=== PATIENT | female | born 1950 | race Caucasian/White ===

== ENCOUNTER → 2018-07-13 | Outpatient (CLI) | payer OTHER | LOC: BHFA 09:00 | PROVIDERS: ATTEND Internal Medicine Cardiovascular Disease | DX: I47.2 Ventricular tachycardia (principal) | CPT/HCPCS: 78452; 93017; A9500 ==

== ENCOUNTER 2018-07-14 10:56 | Emergency (ER) | payer OTHER ==
--- NOTE | 2018-07-14 12:16 | EDPHY ---
H & P Time Seen by Provider: 07/14/18 12:15 HPI/ROS: Chief complaint. Chest pain HPI. 68-year-old female with complaint of palpitations for 2 months. Seems to be better with deep breathing. Today she had some retrosternal chest tightness that went to the left neck. No shortness of breath. Symptoms are not worse with exertion. She recently wore a Holter monitor for 10 days and there was initial concern for V-tach however on review and discussion with Cardiology today this was artifact. She had a nuclear stress test yesterday that was normal per Cardiology she has no shortness of breath. No fever cough. No unusual leg pain or swelling. She has had history of palpitations. ROS 10 systems were reviewed and negative with the exception of the elements mentioned in the history of present illness Past Medical/Surgical History: Past medical history severe anxiety, depression, palpitations Family history mom had a pacemaker at an elderly age Social History: Single, nonsmoker, no alcohol Smoking Status: Never smoked Physical Exam: General Appearance: Alert well-developed female mild distress vital signs are stable Eyes: Pupils equal and round no pallor or injection. ENT, Mouth: Mucous membranes are moist. Respiratory: There are no retractions, lungs are clear to auscultation. Cardiovascular: Regular rate and rhythm. Gastrointestinal: Abdomen is soft and nontender, no masses, bowel sounds normal. Neurological: Awake and alert, sensory and motor exams grossly normal. Skin: Warm and dry, no rashes. Musculoskeletal: Neck is supple nontender. Extremities symmetrical, full range of motion. Psychiatric: Patient is oriented X 3, there is no agitation. Constitutional: Initial Vital Signs Temperature (C) 36.8 C 07/14/18 10:59 Heart Rate 76 07/14/18 10:59 Respiratory Rate 18 07/14/18 10:59 Blood Pressure 135/77 H 07/14/18 10:59 O2 Sat (%) 94 07/14/18 10:59 O2 Delivery Mode Room Air Allergies/Adverse Reactions: No Known Allergies Allergy (Verified 07/14/18 10:58) Home Medications: Medication Instructions Recorded lamoTRIgine [LamICTAL] 25 mg PO 05/22/15 DULoxetine 07/14/18 Hormones 07/14/18 Medical Decision Making - Diagnostics EKG Interpretation: EKG interpreted by me shows normal sinus rhythm normal interval and axis. QRS is normal there is no significant ST elevation or depression. No arrhythmia. The rate is 71 Procedures: IV normal saline, monitor ED Course/Re-evaluation: per cardiology--nuclear stress test yest nl; holter--no VT Initial troponin was 0. Repeat troponin was 0.04. We will wait 1 hr and repeat the troponin again. This is discussed with the patient. She expresses understanding and agreement 3rd troponin is 0. Re-evaluation the patient she stable. She and I discussed laboratory evaluation , treatment plan including criteria for return importance of follow-up and further evaluation. She expresses understanding and Differential Diagnosis: I considered acute coronary syndrome. Patient came with a history of V-tach and on further evaluation and communication we apparently this was artifact. She had a normal nuclear stress test yesterday. No evidence for acute coronary syndrome today - Data Points Laboratory Results: Laboratory Results 07/14/18 11:10 07/14/18 11:10 07/14/18 07/14/18 07/14/18 14:42 13:28 11:14 WBC RBC Hgb Hct MCV MCH MCHC RDW Plt Count MPV Neut % (Auto) Lymph % (Auto) [place] % (Auto) Eos % (Auto) Baso % (Auto) Nucleat RBC Rel Count Absolute Neuts (auto) Absolute Lymphs (auto) Absolute Monos (auto) Absolute Eos (auto) Absolute Basos (auto) Absolute Nucleated RBC Immature Gran % Immature Gran # Sodium Potassium Chloride Carbon Dioxide Anion Gap BUN Creatinine Estimated GFR Glucose Calcium POC Troponin I 0.00 ng/mL ng/mL 0.04 ng/mL ng/mL 0.00 ng/mL ng/mL (0.00-0.08) (0.00-0.08) (0.00-0.08) 07/14/18 07/14/18 11:10 11:10 WBC 6.18 10^3/uL 10^3/uL (3.80-9.50) RBC 5.29 10^6/uL 10^6/uL (4.18-5.33) Hgb 16.6 g/dL H g/dL (12.6-16.3) Hct 49.5 % H % (38.0-47.0) MCV 93.6 fL fL (81.5-99.8) MCH 31.4 pg pg (27.9-34.1) MCHC 33.5 g/dL g/dL (32.4-36.7) RDW 12.8 % % (11.5-15.2) Plt Count 244 10^3/uL 10^3/uL (150-400) MPV 10.8 fL fL (8.7-11.7) Neut % (Auto) 57.2 % % (39.3-74.2) Lymph % (Auto) 30.3 % % (15.0-45.0) [place] % (Auto) 10.4 % % (4.5-13.0) Eos % (Auto) 1.3 % % (0.6-7.6) Baso % (Auto) 0.6 % % (0.3-1.7) Nucleat RBC Rel Count 0.0 % % (0.0-0.2) Absolute Neuts (auto) 3.54 10^3/uL 10^3/uL (1.70-6.50) Absolute Lymphs (auto) 1.87 10^3/uL 10^3/uL (1.00-3.00) Absolute Monos (auto) 0.64 10^3/uL 10^3/uL (0.30-0.80) Absolute Eos (auto) 0.08 10^3/uL 10^3/uL (0.03-0.40) Absolute Basos (auto) 0.04 10^3/uL 10^3/uL (0.02-0.10) Absolute Nucleated RBC 0.00 10^3/uL 10^3/uL (0-0.01) Immature Gran % 0.2 % % (0.0-1.1) Immature Gran # 0.01 10^3/uL 10^3/uL (0.00-0.10) Sodium 139 mEq/L mEq/L (135-145) Potassium 4.8 mEq/L mEq/L (3.5-5.2) Chloride 103 mEq/L mEq/L (97-110) Carbon Dioxide 26 mEq/l mEq/l (22-31) Anion Gap 10 mEq/L mEq/L (6-14) BUN 20 mg/dL mg/dL (7-23) Creatinine 0.7 mg/dL mg/dL (0.6-1.0) Estimated GFR > 60 Glucose 106 mg/dL H mg/dL (70-100) Calcium 9.6 mg/dL mg/dL (8.5-10.4) POC Troponin I Point of Care Test Results: Chemistry 07/14/18 07/14/18 07/14/18 14:42 13:28 11:14 POC Troponin I 0.00 ng/mL ng/mL 0.04 ng/mL ng/mL 0.00 ng/mL ng/mL (0.00-0.08) (0.00-0.08) (0.00-0.08) Departure - Departure Disposition: Home, Routine, Self-Care Clinical Impression: Chest pain Qualifiers: Chest pain type: unspecified Qualified Code(s): R07.9 - Chest pain, unspecified Condition: Good Instructions: Chest Pain (ED) Additional Instructions: Activity as tolerated Return for worsening chest discomfort Follow-up with Dr. Yeung for further discussion of your recent nuclear stress test and Holter monitor rhythm evaluation Referrals: Cassy English MD [Primary Care Provider] - As per Instructions Shukri Yeung MD [Medical Doctor] - 2-3 days, call for appt.
[2018-07-14 12:25] LABS: PLATELET COUNT 244 10^3/uL (150-400)
[2018-07-14 15:15] VITALS: BP 108/84
--- NOTE | 2018-07-14 15:47 | CPEKG ---
Test Reason : OPEN Blood Pressure : / mmHG Vent. Rate : 071 BPM Atrial Rate : 070 BPM P-R Int : 163 ms QRS Dur : 086 ms QT Int : 399 ms P-R-T Axes : 075 077 056 degrees QTc Int : 434 ms Sinus rhythm Confirmed by Zurdo Singletary ([id number]) on 07/14/2018 3:46:37 PM Referred By: PHYSICIAN ED Confirmed By:Zurdo Singletary
== END 2018-07-14 15:15 | disposition home or self-care (01) ==
DX: R07.9 Chest pain, unspecified (principal)
CPT/HCPCS: 84484-ER